=== PATIENT | female | born 1955 | race Caucasian/White ===

== ENCOUNTER 2016-08-26 20:46 | Emergency (ER) | payer OTHER ==
[2016-08-26 20:51] VITALS: TEMP 97.6; BMI 4120.4
[2016-08-26] MEDS ORDERED: NITROGLYCERINE 2 % OINTMENT PACK TOP ONE (21:08)
[2016-08-26] MEDS ORDERED: SODIUM CHLORIDE 0.9% 10 ML FLUSH FLUSH PRN (21:08)
[2016-08-26] MEDS ORDERED: METOPROLOL TARTRATE 25 MG TAB PO ONE (21:08)
[2016-08-26] MEDS ORDERED: ASPIRIN (CHEWABLE) 81 MG TAB PO ONE (21:08)
--- NOTE | 2016-08-26 21:08 | EDPRACDOC ---
<Ernesto Farr - Last Filed: 08/26/16 22:40> - History of Present Illness Onset: NOON HPI: PT COMPLAINS OF THROBBING AND ACHING PAIN ACROSS HER CHEST RADIATING TO RIGHT AXILLA, SUDDEN ONSET AROUND LUNCH TODAY, GETTING WORSE TONIGHT, NO SOBR, N/V/D, NO DIAPHORESIS, NO EXAC/AMEL FACTORS, PT REPORTS INCREASED STRESS TODAY. PT DENIES PRIOR HX OF CAD, HAS NEVER HAD STRESS TEST OR HEART CATH. Chest Pain Location: Reports: Substernal, Right Chest, Left Chest Pain Radiation: Reports: Arm (R) Symptoms Occur: Reports: Suddenly, At Rest Cardiac Risk Factors: Reports: Hypertension Cardiac History of: Reports: None, Cardiomyopathy Medications within 24 Hours: Reports: None Prehospital Care: Reports: None Pain Came On: Reports: Suddenly Pain Status: Present Now Pain Description: Reports: Aching Pain Severity: Severe Pain Worsens With: Reports: Nothing Pain Improves With: Reports: Nothing Associated Signs and Symptoms: Denies: SOB, Palpitations, Diaphoretic, Abdominal Pain, Nausea, Vomiting, Calf Pain or Swelling, Chest Rash <Siva Espinoza - Last Filed: 08/27/16 00:58> - General Information Chief Complaint: Chest Pain Stated Complaint: CP SHARP Time Seen by Provider: 08/26/16 21:05 Home Medications: Home Medications Potassium Chloride 10 meq PO DAILY #14 capsule.er 08/27/16 Allergies/Adverse Reactions: Allergies Allergy/AdvReac Type Severity Reaction Status Date / Time No Known Allergies Allergy Verified 08/26/16 20:51 ED Past Medical History - History Reviewed Yes Nurses notes reviewed and agree except as marked - Patient Medical History Cardiac History: Reports: Hypertension Systemic History: Denies: Cancer - Social Medical History Smoking Status: Never smoker ETOH: None Substance Abuse: None <Siva Espinoza - Last Filed: 08/27/16 00:58> EDM Review of Systems - Review of Systems Constitutional: negative: Chills, Fever Eyes: negative: Blurred Vision, Double Vision Ears: negative: Drainage Throat: negative: Pain Nose: negative: Congestion, Discharge Respiratory: negative: Cough, Shortness of Breath, Wheezing Cardiovascular: Chest Pain. negative: Palpitations Gastrointestinal: negative: Diarrhea, Nausea, Pain, Vomiting Genitourinary: negative: Dysuria, Frequency Neurological: negative: Dizziness, Headache, Numbness, Weakness Musculoskeletal: No Symptoms Reported Integumentary: No Symptoms Reported <Siva Espinoza - Last Filed: 08/27/16 00:58> - Physical Exam Last recorded Vital Signs: Last Vital Signs Temp 97.6 F 08/26/16 20:49 Pulse 88 08/26/16 22:26 Resp 20 08/26/16 22:26 BP 140/76 08/26/16 22:26 Pulse Ox 94 08/26/16 22:26 Oxygen Pulse Oxygen Saturation 94 O2 Device Room Air Oxygen Flow Rate Fraction of Inspired Oxygen ( FIO2) <Ernesto Farr - Last Filed: 08/26/16 22:40> - Physical Exam Constitutional: Alert (Awake), No apparent distress Oriented to: Time, Person, Place Last recorded Vital Signs: Last Vital Signs Temp 97.6 F 08/26/16 20:49 Pulse 91 08/26/16 20:49 Resp 20 08/26/16 20:49 BP 167/87 08/26/16 20:49 Pulse Ox 98 08/26/16 20:49 Oxygen Pulse Oxygen Saturation 98 O2 Device Room Air Oxygen Flow Rate Fraction of Inspired Oxygen ( FIO2) - HEENT Head: Normal ( normocephalic) Eye Exam: Normal (PERRL, EOMI, Sclera white) Oropharynx: Normal (Pharynx:Moist without exudate,Gums-no swelling) Tympanic Membrane: Normal ENT EAC: Normal TMJ: Normal Nose: No Symptoms Reported (septum midline) Neck: Normal (FROM, trachea at midline) - Respiratory/Cardiovascular Respiratory: Normal - CTA (BBS clear to auscultation without adventitious sounds ) Cardiovascular: Normal (RRR without murmur, gallop or rub) - GI Auscultation: Normal (NABS) Palpation: Normal (Soft,No rebound or guarding, non distended) Tenderness: Non tender Gilbert's Sign: Negative - Musculoskeletal Back: Normal (Non-Tender) Extremities: Normal (Normal tone, Pulses 2+ No cyanosis or edema, FROM) - Integumentary Skin: Normal, Warm, Dry Lymphatics: Normal (no adenopathy) - Neurologic Memory Impaired: Normal Motor Function: Normal (Normal tone, Pulses 2+ No cyanosis or edema, FROM) Cranial Nerve: Normal (CN II-X11 intact sensation, strength 5/5) Cerebellar: Normal Mood Description: Normal Perception: Normal <Siva Espinoza - Last Filed: 08/27/16 00:58> ED Chest Pain Exam - Respiratory/Cardiovascular Respiratory: Normal - CTA Cardiovascular/Chest: Normal Radial Pulse: Normal Carotid Arteries: Normal Edema: negative: 1+, 2+, 3+, 4+, 5, 6 Chest Palpation: Normal. negative: Tender, Reproduces Pain <Siva Espinoza - Last Filed: 08/27/16 00:58> - Results 08/26/16 21:13 08/26/16 21:13 WBC 10.6 xk/uL (3.8-10.8) 08/26/16 21:13 RBC 5.55 xM/uL (4.20-5.40) H 08/26/16 21:13 Hgb 14.8 g/dL (12.0-16.0) 08/26/16 21:13 Hct 44.2 % (36-47) 08/26/16 21:13 MCV 80 fL (81-99) L 08/26/16 21:13 MCH 26.7 pg (27-32) L 08/26/16 21:13 MCHC 33.5 g/dl (33-36) 08/26/16 21:13 RDW 14.4 % (11.5-14.5) 08/26/16 21:13 Plt Count 225 xk/uL (130-400) 08/26/16 21:13 MPV 9.1 fL (7.4-10.4) 08/26/16 21:13 Neut % (Auto) 73.1 % (45-76) 08/26/16 21:13 Lymph % (Auto) 19.6 % (17-44) 08/26/16 21:13 [place] % (Auto) 5.2 % (3-10) 08/26/16 21:13 Eos % (Auto) 1.2 % (0-5) 08/26/16 21:13 Baso % (Auto) 0.9 % (0-2) 08/26/16 21:13 Absolute Neuts (auto) 7.74 xk/uL (1.7-8.2) 08/26/16 21:13 Absolute Lymphs (auto) 2.01 xk/uL (0.65-4.75) 08/26/16 21:13 PT 9.9 SEC (9.2-11.2) 08/26/16 21:13 INR 1.0 08/26/16 21:13 APTT 23.3 SEC (22-35) 08/26/16 21:13 Sodium 138 mEq/L (137-146) 08/26/16 21:13 Potassium 2.7 mEq/L (3.5-5.1) L 08/26/16 21:13 Chloride 94 mEq/L (98-107) L 08/26/16 21:13 Carbon Dioxide 34 mMOL/L (22-33) H 08/26/16 21:13 Anion Gap 13 mEq/L (8-16) 08/26/16 21:13 BUN 24 MG/DL (7-17) H 08/26/16 21:13 Creatinine 1.40 MG/DL (0.52-1.04) H 08/26/16 21:13 Estimated GFR (MDRD) 39 mL/min (>=60) L 08/26/16 21:13 Glucose 111 MG/DL (70-99) H 08/26/16 21:13 Calculated Osmolality 271 MOs/Kg (270-290) 08/26/16 21:13 Calcium 9.3 MG/DL (8.4-10.2) 08/26/16 21:13 Total Bilirubin 0.9 MG/DL (0.2-1.3) 08/26/16 21:13 AST 128 IU/L (14-36) H 08/26/16 21:13 ALT 75 IU/L (9-52) H 08/26/16 21:13 Alkaline Phosphatase 144 IU/L (38-126) H 08/26/16 21:13 Troponin I < 0.01 ng/mL (<.04) 08/26/16 21:13 Total Protein 7.6 G/DL (6.3-8.2) 08/26/16 21:13 Albumin 4.3 G/DL (3.5-5.0) 08/26/16 21:13 Lipase 180 U/L (23-300) 08/26/16 21:13 Lab Results 08/26/16 08/26/16 08/26/16 21:13 21:13 21:13 WBC 10.6 RBC 5.55 H Hgb 14.8 Hct 44.2 MCV 80 L MCH 26.7 L MCHC 33.5 RDW 14.4 Plt Count 225 MPV 9.1 Neut % (Auto) 73.1 Lymph % (Auto) 19.6 [place] % (Auto) 5.2 Eos % (Auto) 1.2 Baso % (Auto) 0.9 Absolute Neuts (auto) 7.74 Absolute Lymphs (auto) 2.01 PT 9.9 INR 1.0 APTT 23.3 Sodium 138 Potassium 2.7 L Chloride 94 L Carbon Dioxide 34 H Anion Gap 13 BUN 24 H Creatinine 1.40 H Estimated GFR (MDRD) 39 L Glucose 111 H Calculated Osmolality 271 Calcium 9.3 Total Bilirubin 0.9 AST 128 H ALT 75 H Alkaline Phosphatase 144 H Troponin I < 0.01 Total Protein 7.6 Albumin 4.3 Lipase 180 Laboratory Results - last 24 hr 08/26/16 08/26/16 08/26/16 21:13 21:13 21:13 WBC 10.6 RBC 5.55 H Hgb 14.8 Hct 44.2 MCV 80 L MCH 26.7 L MCHC 33.5 RDW 14.4 Plt Count 225 MPV 9.1 Neut % (Auto) 73.1 Lymph % (Auto) 19.6 [place] % (Auto) 5.2 Eos % (Auto) 1.2 Baso % (Auto) 0.9 Absolute Neuts (auto) 7.74 Absolute Lymphs (auto) 2.01 PT 9.9 INR 1.0 APTT 23.3 Sodium 138 Potassium 2.7 L Chloride 94 L Carbon Dioxide 34 H Anion Gap 13 BUN 24 H Creatinine 1.40 H Estimated GFR (MDRD) 39 L Glucose 111 H Calculated Osmolality 271 Calcium 9.3 Total Bilirubin 0.9 AST 128 H ALT 75 H Alkaline Phosphatase 144 H Troponin I < 0.01 Total Protein 7.6 Albumin 4.3 Lipase 180 Laboratory Results 08/26/16 21:13 08/26/16 21:13 <Ernesto Farr - Last Filed: 08/26/16 22:40> - Differential Diagnosis Angina, CHF, Costochondritis, Gastritis, Myocardial infarction, Pericarditis, Pancreatitis, Pleuritis, Pneumonia, Pneumothorax - Action Patient received Aspirin within last 24 hours?: No ASA given in the ED: Yes Patient received Beta Antonio within last 24hrs: Yes - Re-evaluation Re-evaluation 1 Re-evaluation Time: 21:59 (NO CHANGE, STATES NOW HURTS ON LEFT SIDE OF HER CHEST ) Re-evaluation 2 Re-evaluation Time: 22:30 (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, ASA, LOPRESSOR, NOW COMPLAINS OF "STOMACH ACHE") Re-evaluation 3 Re-evaluation Time: 22:58 (CP RELIEVED, TEARFUL, STATES HER JOB IS TOO STRESSFUL ) Re-evaluation 4 Re-evaluation Time: 00:54 (2ND TROP NEG, NL EKG, WILL DISCHARGE TO FOLLOW UP WITH CARDIOLOGY, OFFERED PT MEDS FOR ANXIETY/STRESS PT REFUSED) - Results 08/26/16 21:13 08/26/16 21:13 08/26/16 22:22 Laboratory Results - last 24 hr 08/26/16 08/26/16 08/26/16 21:13 21:13 21:13 WBC 10.6 RBC 5.55 H Hgb 14.8 Hct 44.2 MCV 80 L MCH 26.7 L MCHC 33.5 RDW 14.4 Plt Count 225 MPV 9.1 Neut % (Auto) 73.1 Lymph % (Auto) 19.6 [place] % (Auto) 5.2 Eos % (Auto) 1.2 Baso % (Auto) 0.9 Absolute Neuts (auto) 7.74 Absolute Lymphs (auto) 2.01 PT 9.9 INR 1.0 APTT 23.3 Sodium 138 Potassium 2.7 L Chloride 94 L Carbon Dioxide 34 H Anion Gap 13 BUN 24 H Creatinine 1.40 H Estimated GFR (MDRD) 39 L Glucose 111 H Calculated Osmolality 271 Calcium 9.3 Total Bilirubin 0.9 AST 128 H ALT 75 H Alkaline Phosphatase 144 H Troponin I < 0.01 Total Protein 7.6 Albumin 4.3 Lipase 180 - EKG EKG #1 EKG Time: 21:56 -: Yes EKG interpreted by me Rate: bpm: 88 [place]: Normal Rhythm: NSR Block: None Hypertrophy: None ST: Nonsp Comments: NO OLD EKG FOR COMPARISON - Additional Information DISCUSSED WITH DR FARR, WILL CHECK 2ND SET OF ENZYMES, DISCHARGE IF NORMAL. <Siva Espinoza - Last Filed: 08/27/16 00:58> - Departure Yes I personally saw and evaluated the patient. Disposition: Home Decision to Admit Time: 22:33 Decision to admit date: 08/26/16 Decision to admit: from ED - Physician Consulted Hospitalist Time Called: 22:33 Provider Called: Anton Ta (2 SETS TROP THEN HOME) Time [employer] Returned Call: 22:33 <Ernesto Farr - Last Filed: 08/26/16 22:40> - Departure Education/Counseling Given To: Patient Education/Counseling Given Regarding: Diagnosis, Treatment, Prognosis, Follow Up <Siva Espinoza - Last Filed: 08/27/16 00:58> - Departure Condition: Fair Final Diagnosis: Hypokalemia, Dehydration, Anxiety Chest pain Qualifiers: Chest pain type: unspecified Qualified Code(s): R07.9 - Chest pain, unspecified Referrals: Gregoria Reese MD [Primary Care Provider] - One Week Román Hamlin MD [Staff Physician] - One Week Prescriptions: New Potassium Chloride 10 meq PO DAILY #14 capsule.er Additional Instructions: REST, DRINK PLENTY OF FLUIDS, FOLLOW UP WITH YOUR DOCTOR TO HAVE POTASSIUM RECHECKED, RETURN TO THE ED FOR ANY WORSENING SYMPTOMS OR CONCERNS.
[2016-08-26 21:24] LABS: AUTOMATED BASOPHIL 0.9 % (0-2); AUTOMATED EOSINOPHIL 1.2 % (0-5); AUTOMATED LYMPH 19.6 % (17-44); AUTOMATED MONOCYTE 5.2 % (3-10); AUTOMATED NEUTROPHIL 73.1 % (45-76); MPV 9.1 fL (7.4-10.4)
[2016-08-26 21:29] LABS: BLOOD UREA NITROGEN 24 MG/DL (7-17); CALCIUM 9.3 MG/DL (8.4-10.2); CALCULATED OSMOLALITY 271 MOs/Kg (270-290); CHLORIDE 94 mEq/L (98-107); GLUCOSE 111 MG/DL (70-99); SODIUM LEVEL 138 mEq/L (137-146); TOTAL PROTEIN 7.6 G/DL (6.3-8.2)
[2016-08-26 21:50] LABS: PARTIAL THROMB. TIME 23.3 SEC (22-35)
--- NOTE | 2016-08-26 22:04 | DIRPT ---
CLINICAL DATA: Chest pain EXAM: PORTABLE CHEST 1 VIEW COMPARISON: None. FINDINGS: Normal heart size and mediastinal contours. No acute infiltrate or edema. No effusion or pneumothorax. No acute osseous findings. Gaseous distention of the stomach. IMPRESSION: Negative portable chest. Electronically Signed By: Manoj Shi M.D. On: 08/26/2016 22:02
[2016-08-26] MEDS ORDERED: POTASSIUM CHLORIDE 20 MEQ/15 ML ORAL SOLN PO ONE (22:06)
[2016-08-26] MEDS ORDERED: KCl 10 mEq/100 ml Premix (Run) 10 MEQ/100 ML RTU IV ONE (22:07)
[2016-08-27 01:10] VITALS: BP 114/63; PULSE 64
== END 2016-08-27 01:09 | disposition home or self-care (01) ==
LOC: ED 20:46
DX: E86.0 Dehydration (principal); E87.6 Hypokalemia; F41.9 Anxiety disorder, unspecified; R07.9 Chest pain, unspecified
CPT/HCPCS: 36415; 71010; 80053; 83690; 83735; 84100; 84484; 85025; 85610; 85730; 93005; 96365; 99284; J3480; J3490